=== PATIENT | male | born 2000 | race Hispanic/Latino ===

== ENCOUNTER 2023-03-21 16:05 | Emergency (ER) | payer OTHER ==
[~2023-03-21] VITALS: Ht 182.9 cm; Wt 117.9 kg
[2023-03-21 16:08] VITALS: BP 152/82; PULSE 68; RESP 18
[2023-03-21] MEDS ORDERED: IOHEXOL-350 50ML VIAL IV ONE (16:25)
[2023-03-21 16:41] LABS: HEMATOCRIT 43.4 % (42-54); MEAN CORPUSCULAR HEMOGLOBIN 30.8 pg (27.0-33.0); MEAN CORPUSCULAR HGB CONC 34.8 g/dL (32.0-36.0); MEAN CORPUSCULAR VOLUME 88.4 fL (79-99); RED BLOOD CELL COUNT(AUTO) 4.91 MIL/uL (4.50-6.20); RED CELL DISTRIBUTION WIDTH 11.9 % (11.0-15.5); WHITE BLOOD COUNT (AUTO) 5.8 K/uL (4.8-10.8)
[2023-03-21 16:53] LABS: CREATININE 0.8 mg/dL (0.5-1.5); POTASSIUM 4.1 mmol/L (3.5-5.1)
[2023-03-21] MEDS: MORPHINE 2 MG SYG IVP ONE ×2 (17:16→17:22)
[2023-03-21] MEDS ORDERED: IBUPROFEN 600 MG TABLET PO ONE (18:00)
== END 2023-03-21 17:30 | disposition home or self-care (01) ==
LOC: EDH 16:05
DX: M79.10 Myalgia, unspecified site (principal); V49.49XA Driver injured in collision with other motor vehicles in traffic accident, initial encounter; Y93.89 Activity, other specified; Y92.89 Other specified places as the place of occurrence of the external cause; Y99.8 Other external cause status
CPT/HCPCS: 99285; 70450; 71045; 82550; 80048; 85027; 36415; 72170; 72125; 71260; 74177; J2270; Q9967